=== PATIENT | male | born 2000 | race Two or more races ===

== ENCOUNTER 2022-01-10 13:38 | Emergency (ER) | payer MEDICAID, OTHER ==
[~2022-01-10] VITALS: Ht 170.2 cm; Wt 88.5 kg
[2022-01-10 15:03] VITALS: BP 120/78
== END 2022-01-10 15:54 | disposition home or self-care (01) ==
LOC: ER 13:38
DX: S16.1XXA Strain of muscle, fascia and tendon at neck level, initial encounter (principal); S00.83XA Contusion of other part of head, initial encounter; V43.52XA Car driver injured in collision with other type car in traffic accident, initial encounter; Y93.89 Activity, other specified; Y92.488 Other paved roadways as the place of occurrence of the external cause; Y99.8 Other external cause status

== ENCOUNTER 2022-10-22 18:14 | Emergency (ER) | payer MEDICAID ==
[~2022-10-22] VITALS: Ht 167.6 cm; Wt 88.0 kg
[2022-10-22 20:46] VITALS: BP 134/82
[2022-10-22] MEDS ORDERED: CEPH-510 PO (21:10)
== END 2022-10-22 21:17 | disposition home or self-care (01) ==
LOC: ER 18:14
DX: H00.015 Hordeolum externum left lower eyelid (principal); Z79.899 Other long term (current) drug therapy